=== PATIENT | female | born 1960 | race Hispanic/Latino ===

== ENCOUNTER 2024-02-23 19:06 | Emergency (ER) | payer OTHER ==
[~2024-02-23] VITALS: Ht 160 cm; Wt 75.3 kg
[2024-02-23 19:46] LABS: EOSINOPHILS # (AUTO) 0.1 (0.0-0.4); EOSINOPHILS % 2.3 % (0.0-6.0); HEMATOCRIT 34.7 % (34.2-44.1); HEMOGLOBIN 11.6 g/dL (12.0-16.0); LYMPHOCYTES # (AUTO) 0.8 (1.0-3.2); LYMPHOCYTES % 25.4 % (18.0-39.1); MEAN CORPUSCULAR HEMOGLOBIN 30.5 pg (28-32); MEAN CORPUSCULAR HGB CONC 33.4 g/dL (31-35); MEAN CORPUSCULAR VOLUME 91.3 fL (81-99); MONOCYTES # (AUTO) 0.3 (0.2-0.8); NEUTROPHILS # (AUTO) 1.9 (2.1-6.9); PLATELET COUNT 84 x10e3/uL (140-360); RED CELL DISTRIBUTION WIDTH 18.6 % (11.7-14.4); WHITE BLOOD COUNT 3.11 x10e3/uL (4.8-10.8)
[2024-02-23 19:51] LABS: INR 1.32
[2024-02-23 20:20] LABS: ALBUMIN 2.8 g/dL (3.5-5.0); ALBUMIN/GLOBULIN RATIO 0.8 (0.8-2.0); ANION GAP 14.1 mmol/L (8-16); BILIRUBIN,TOTAL 2.2 mg/dL (0.2-1.2); CALCIUM 8.4 mg/dL (8.4-10.2); CREATININE, SERUM 1.03 mg/dL (0.57-1.11); TOTAL PROTEIN 6.5 g/dL (6.5-8.1)
[2024-02-23 20:22] LABS: POTASSIUM 3.1 mmol/L (3.5-5.1)
[2024-02-23] MEDS ORDERED: IOPAMIDOL 370 MG/ML 100 ML INFUS..BTL INJ ONE (20:30)
[2024-02-23] MEDS ORDERED: ULTRAM 50MG50 MG PO (21:43)
[2024-02-23 22:03] VITALS: PULSE 65; RESP 16; TEMP 98.3; O2SAT 100
== END 2024-02-23 22:03 | disposition home or self-care (01) ==
LOC: ER 19:12
DX: K70.31 Alcoholic cirrhosis of liver with ascites (principal); R93.2 Abnormal findings on diagnostic imaging of liver and biliary tract; N20.0 Calculus of kidney; K80.20 Calculus of gallbladder without cholecystitis without obstruction; K57.90 Diverticulosis of intestine, part unspecified, without perforation or abscess without bleeding
CPT/HCPCS: 36415; 74177; 80053; 83690; 85025; 85610; 99284; Q9967